=== PATIENT | male | born 1990 | race American Indian/Alaskan Native ===

== ENCOUNTER 2017-11-04 18:15 | Emergency (ER) | payer BC, OTHER ==
[2017-11-04] MEDS ORDERED: HYDROmorphone 1 MG/ML Syringe IVPUSH ONE (18:40)
[2017-11-04] MEDS ORDERED: Sodium Chloride 0.9% 10 ML Syringe FLUSH PRN (18:40)
[2017-11-04] MEDS ORDERED: Ondansetron 4 MG/2 ML SDV IVPUSH ONE (18:40)
[2017-11-04] MEDS ORDERED: Sodium Chloride 0.9% 1,000 ML IV ONE (18:41)
--- NOTE | 2017-11-04 18:46 | EDM.PDOC ---
ED HPI GENERAL MEDICAL PROBLEM - General Chief Complaint: Trauma Stated Complaint: FELL OFF LADDER Time Seen by Provider: 11/04/17 18:23 Source of Information: Reports: Patient History Limitations: Reports: No Limitations - History of Present Illness INITIAL COMMENTS - FREE TEXT/NARRATIVE: 27-year-old male presents for evaluation and treatment of injuries sustained after falling off a ladder. estimates he was 6 feet off the ground. Sounds as if he was putting up siding when the wind caught him causing him to fall off the ladder. Unclear exactly how he fell, believed to have landed on his buttocks. He is primarily complaining of pain to the low back and tailbone. He is also complaining of a headache. Rates the headache as had a 10 out of 10. Rates his low back pain a 10 out of 10. This injury occurred about an hour prior to arrival in the ER. His significant other is with him and states that it took him a long time to get up off of the ground. He felt nauseous and lightheaded earlier but this has improved. He is reporting some blurry vision and vision changes. Unsure if he lost consciousness but feels this is likely. Denies any neck pain, chest pain, abdominal pain, pain in the extremities, difficulty walking or numbness or tingling in the extremities. Trauma alert minor called upon arrival to the ED. C-collar placed upon arrival to the ED. Onset: Today Location: Reports: Head, Back Lower Headache Pain Score (Numeric/FACES): 10 - Related Data Allergies Allergy/AdvReac Type Severity Reaction Status Date / Time doxycycline Allergy Hives Verified 11/04/17 18:35 Home Meds: Home Meds Acetaminophen/HYDROcodone [[place] 325-5 MG] 1 tab PO Q6H PRN #10 tablet 11/04/17 [Rx] Orphenadrine [Norflex] 100 mg PO BID PRN #20 tab 11/04/17 [Rx] Review of Systems - Review of Systems Review Of Systems: See Below Eyes: Reports: Blurred Vision, Vision Change Ears: Reports: Dizziness Nose: Denies: Epistaxis Mouth/Throat: Denies: Loose Teeth Respiratory: Denies: Shortness of Breath Cardiovascular: Denies: Chest Pain GI/Abdominal: Reports: Nausea. Denies: Abdominal Pain, Vomiting Musculoskeletal: Reports: Back Pain (low back). Denies: Neck Pain, Arm Pain, Leg Pain Neurological: Reports: Dizziness, Headache, Syncope. Denies: Numbness, Tingling , Difficulty Walking ED EXAM, GENERAL - Physical Exam Exam: See Below Exam Limited By: No Limitations General Appearance: Alert, WD/WN, No Apparent Distress Eye Exam: Bilateral Eye: Normal Inspection, PERRL Ears: Normal External Exam, Normal Canal, Hearing Grossly Normal, Normal TMs Nose: Normal Inspection, No Blood Throat/Mouth: Normal Inspection, Normal Lips, Normal Teeth, Normal Oropharynx, Normal Voice, No Airway Compromise Head: Atraumatic, Normocephalic Neck: Normal Inspection, Supple, Non-Tender, Full Range of Motion, Other (c collar applied upon arrival to the ED) Respiratory/Chest: No Respiratory Distress, Lungs Clear, Normal Breath Sounds, Chest Non-Tender Cardiovascular: Normal Peripheral Pulses, Regular Rate, Rhythm, No Murmur GI/Abdominal: Soft, Non-Tender Back Exam: Normal Inspection, Other (sacrum). No: Vertebral Tenderness Extremities: Normal Inspection Neurological: Alert, Oriented, Normal Cognition Psychiatric: Normal Affect, Normal Mood Skin Exam: Warm, Dry, Normal Color Course - Vital Signs Last Recorded V/S: Last Vital Signs Temp 98.2 F 11/04/17 20:30 Pulse 69 11/04/17 20:30 Resp 15 11/04/17 20:30 BP 104/52 L 11/04/17 20:30 Pulse Ox 93 L 11/04/17 20:30 - Orders/Labs/Meds Orders: Active Orders 24 hr Category Date Time Status Cardiac Monitoring [RC] . DIRECTED Care 11/04/17 18:40 Active Peripheral IV Care [RC] . DIRECTED Care 11/04/17 18:40 Active Cervical Spine wo Cont [CT] Stat Exams 11/04/17 18:40 Taken Chest Abdomen Pelvis w Cont [CT] Stat Exams 11/04/17 18:40 Taken Head wo Cont [CT] Stat Exams 11/04/17 18:40 Taken Lumbar Spine wo Cont [CT] Stat Exams 11/04/17 18:40 Taken DRUG SCREEN, URINE [URCHEM] Stat Lab 11/04/17 18:40 Ordered UA W/MICROSCOPIC [URIN] Stat Lab 11/04/17 18:39 Ordered Peripheral IV Insertion Adult [OM.PC] Routine Oth 11/04/17 18:40 Ordered Labs: Laboratory Tests 11/04/17 11/04/17 Range/Units 18:42 18:42 WBC 16.65 H (4.23-9.07) K/mm3 RBC 5.63 (4.63-6.08) M/mm3 Hgb 16.8 (13.7-17.5) gm/L Hct 48.8 (40.1-51.0) % MCV 86.7 (79.0-92.2) fl MCH 29.8 (25.7-32.2) pg MCHC 34.4 (32.2-35.5) g/dl RDW Std Deviation 41.0 (35.1-43.9) fL Plt Count 261 (163-337) K/mm3 MPV 9.5 (9.4-12.3) fl Neut % (Auto) 85.9 H (34.0-67.9) % Lymph % (Auto) 7.6 L (21.8-53.1) % [place] % (Auto) 4.9 L (5.3-12.2) % Eos % (Auto) 1.2 (0.8-7.0) Baso % (Auto) 0.1 (0.1-1.2) % Neut # (Auto) 14.30 H (1.78-5.38) K/mm3 Lymph # (Auto) 1.27 L (1.32-3.57) K/mm3 [place] # (Auto) 0.82 (0.30-0.82) K/mm3 Eos # (Auto) 0.20 (0.04-0.54) K/mm3 Baso # (Auto) 0.01 (0.01-0.08) K/mm3 Manual Slide Review Abnormal smear Sodium 142 (136-145) mEq/L Potassium 4.2 (3.5-5.1) mEq/L Chloride 105 (98-107) mEq/L Carbon Dioxide 27 (21-32) mEq/L Anion Gap 14.2 (5-15) BUN 16 (7-18) mg/dL Creatinine 1.2 (0.7-1.3) mg/dL Est Cr Clr Drug Dosing 100.59 mL/min Estimated GFR (MDRD) > 60 (>60) mL/min BUN/Creatinine Ratio 13.3 L (14-18) Glucose 123 H (74-106) mg/dL Calcium 9.2 (8.5-10.1) mg/dL Total Bilirubin 1.2 H (0.2-1.0) mg/dL AST 20 (15-37) U/L ALT 29 (16-63) U/L Alkaline Phosphatase 126 H (46-116) U/L Total Protein 7.8 (6.4-8.2) g/dl Albumin 4.3 (3.4-5.0) g/dl Globulin 3.5 gm/dL Albumin/Globulin Ratio 1.2 (1-2) Lipase 71 L (73-393) U/L Ethyl Alcohol 0.00 (0.00) gm% Meds: Medications Discontinued Medications Generic Name Dose Route Start Last Admin Trade Name Freq PRN Reason Stop Dose Admin Hydromorphone HCl 1 mg 11/04/17 18:40 11/04/17 19:03 Dilaudid IVPUSH 11/04/17 18:41 1 mg ONETIME ONE Administration Sodium Chloride 1,000 mls @ 999 mls/hr 11/04/17 18:41 11/04/17 19:02 Normal Saline IV 11/04/17 19:41 999 mls/hr ONETIME ONE Administration Iopamidol 125 ml 11/04/17 19:13 11/04/17 19:27 Isovue-300 (61%) IVPUSH 11/04/17 19:14 125 ml ONETIME ONE Administration Ondansetron HCl 4 mg 11/04/17 18:40 11/04/17 19:03 Zofran IVPUSH 11/04/17 18:41 4 mg ONETIME ONE Administration Sodium Chloride 10 ml 11/04/17 18:40 11/04/17 19:03 Saline Flush FLUSH 10 ml ASDIRECTED PRN Administration Keep Vein Open Sodium Chloride 10 ml 11/04/17 19:13 11/04/17 19:27 Saline Flush FLUSH 11/04/17 19:14 10 ml ONETIME ONE Administration - Radiology Interpretation Free Text/Narrative:: CT of the head without IV contrast impression per vrad: no acute intracranial hemorrhage or mass effect. CT of the cervical spine without contrast impression per vrad: no acute fracture or traumatic subluxation. CT of lumbar spine without contrast impression per vrad: normal lumbar spine CT. CT of the chest with IV contrast impression per vrad: normal chest. CT of the abdomen and pelvis with IV contrast impression per vrad: no acute findings. - Re-Assessments/Exams Free Text/Narrative Re-Assessment/Exam: 11/04/17 20:04 As this Was a trauma alert minor, the case was discussed with Dr. Guillen, ER physician. He has seen and evaluated the patient. Evaluated around 18:45. Agrees with workup. I have reviewed the labs and imaging with the patient. Reports good pain relief with the IV Dilaudid. C-collar removed. Will discharge home at this time. Discharge instructions as documented. Departure - Departure Time of Disposition: 20:15 Disposition: Home, Self-Care 01 Condition: Fair Clinical Impression: Fall, Back pain - Discharge Information *PRESCRIPTION DRUG MONITORING PROGRAM REVIEWED*: No *COPY OF PRESCRIPTION DRUG MONITORING REPORT IN PATIENT MANUEL: No Prescriptions: Acetaminophen/HYDROcodone [[place] 325-5 MG] 1 tab PO Q6H PRN #10 tablet PRN Reason: Pain Orphenadrine [Norflex] 100 mg PO BID PRN #20 tab PRN Reason: Muscle Spasm Instructions: Back Pain, Adult Referrals: PCP,None [Primary Care Provider] - Ximena Layne PA-C [[employer]] - Forms: ED Department Discharge Additional Instructions: You were given medication in the ER that can affect your ability to drive and operate machinery. Do not drive or operative machinery within 10 hours of taking prescription narcotic pain medication. Recommend [id number] Tylenol or Motrin as needed for pain. Do not take more 4 g of Tylenol from all sources in 1 day. Do not take more than 3200 mg of ibuprofen in 1 day. For pain not relieved by tylenol or motrin may take norco 1 tab PO every 4-6 hours. Elmira can be habit forming, take as few as needed to control your pain. Do not drive or operate machinery within 10 hours of taking norco. Recommend using ice or heat for additional pain relief. You may also try topical products such as icyhot or BenGay. Recommend follow-up in the clinic within 2 weeks for recheck of your symptoms. Recommend Nelida Layne or Dr. Mccullough over at the [facility]. Call [phone] to schedule with one of these providers. May take Norflex 1 tab twice a day as needed for muscle pain and spasms. this Medication and make you drowsy. Do not drive or operate machinery until you know how this medication will affect you. Please return to the ER if your symptoms change or worsen. r - My Orders Last 24 Hours: My Active Orders 11/04/17 18:39 UA W/MICROSCOPIC [URIN] Stat 11/04/17 18:40 Cardiac Monitoring [RC] . DIRECTED Peripheral IV Care [RC] . DIRECTED Cervical Spine wo Cont [CT] Stat Chest Abdomen Pelvis w Cont [CT] Stat Head wo Cont [CT] Stat Lumbar Spine wo Cont [CT] Stat DRUG SCREEN, URINE [URCHEM] Stat Peripheral IV Insertion Adult [OM.PC] Routine - Assessment/Plan Last 24 Hours: My Active Orders 11/04/17 18:39 UA W/MICROSCOPIC [URIN] Stat 11/04/17 18:40 Cardiac Monitoring [RC] . DIRECTED Peripheral IV Care [RC] . DIRECTED Cervical Spine wo Cont [CT] Stat Chest Abdomen Pelvis w Cont [CT] Stat Head wo Cont [CT] Stat Lumbar Spine wo Cont [CT] Stat DRUG SCREEN, URINE [URCHEM] Stat Peripheral IV Insertion Adult [OM.PC] Routine
[2017-11-04] MEDS ORDERED: Sodium Chloride 0.9% 10 ML Syringe FLUSH ONE (19:13)
[2017-11-04] MEDS ORDERED: Iopamidol 612 MG/ML 150 ML Bottle IVPUSH ONE (19:13)
--- NOTE | 2017-11-05 10:10 | CT ---
CT cervical spine Technique: Multiple axial sections were obtained from above C1 inferiorly to the bottom of T1. Reconstructed sagittal and coronal images were reviewed. Comparison: No prior cervical spine imaging. Findings: Vertebral body heights and disc spaces are maintained. Vertebral bodies and posterior arches are intact. No fracture is identified. No abnormal subluxation is seen. Impression: 1. No abnormality is identified on CT study of the cervical spine. Diagnostic code #1 I agree with preliminary report from [facility], finalized at 11/04/17, 8:55 PM Central Time
--- NOTE | 2017-11-05 10:10 | CT ---
CT chest Technique: Multiple axial sections through the chest were obtained. Intravenous contrast was utilized. Comparison: No prior chest imaging is available. Findings: Mediastinum and hilar regions appear within normal limits. No pericardial thickening is seen. Lungs are clear. No parenchymal contusion is seen. No pleural effusions or pneumothorax are seen. Bone window settings were reviewed and no acute osseous abnormality is appreciated. Impression: 1. No abnormality is identified on CT study of the chest. Diagnostic code #1 I agree with preliminary report from [facility], finalized at 11/04/17, 8:[address] abdomen and pelvis Technique: Multiple axial sections were obtained from above the dome of the diaphragm inferiorly through the pubic symphysis. Intravenous contrast was utilized. No oral contrast has been given. Delayed images were obtained through the bladder. Comparison: No prior abdominal imaging. Findings: Liver shows no focal parenchymal abnormality. Spleen appears within normal limits. Adrenal glands show no nodule. Gallbladder contains no calcified gallstones. Pancreas is within normal limits. Kidneys show symmetric contrast enhancement without hydronephrosis or mass. Aorta shows no aneurysmal dilatation. No retroperitoneal adenopathy or mesenteric abnormalities are seen. No pelvic mass or adenopathy is seen. No free fluid or inflammatory change is seen. Appendix is visualized and appears normal in size. Delayed images show contrast within the distal ureters and within the bladder. Bone window settings were reviewed and show no acute osseous abnormality. Impression: 1. Nothing acute is seen on CT study of the abdomen and pelvis. Diagnostic code #1 I agree with preliminary report from [facility], finalized at 11/04/17, 8:51 PM Central Time
--- NOTE | 2017-11-05 10:10 | CT ---
CT lumbar spine Technique: Multiple axial sections were obtained from the mid T12 level inferiorly through the L5-S1 disc. Reconstructed sagittal and coronal images were reviewed. Comparison: No prior lumbar spine imaging is available. Findings: Vertebral body heights and disc spaces are maintained. Very slight diffuse posterior disc bulge is noted at L4-L5. Other discs are maintained. No disc herniation is seen. No fracture is identified. No abnormal subluxation is seen. Impression: 1. Minimal diffuse posterior disc bulge at L4-L5. CT study of the lumbar spine is otherwise unremarkable. Diagnostic code #2 I agree with preliminary report from [facility], finalized at 11/04/17, 8:52 PM Central Time
--- NOTE | 2017-11-05 10:10 | CT ---
Head CT Technique: Multiple axial sections through the brain were obtained. Intravenous contrast was not utilized. Comparison: No prior intracranial imaging. Findings: Ventricles along with basal cisterns and sulci over the convexities are within normal limits for the patient's age. No abnormal parenchymal densities are seen. No evidence of intracranial hemorrhage. No midline shift or mass effect is seen. Bone window settings were reviewed which show paranasal sinuses to appear clear. No acute calvarial abnormality is seen. Impression: 1. No abnormality is identified on noncontrast head CT study. Diagnostic code #1 I agree with preliminary report from [facility], finalized at 11/04/17, 8:59 PM Central Time
== END 2017-11-04 20:35 | disposition home or self-care (01) ==
LOC: JD.ED 18:15
DX: M54.5 Low back pain (principal); W11.XXXA Fall on and from ladder, initial encounter; Z88.1 Allergy status to other antibiotic agents
CPT/HCPCS: 36415; 70450; 71260; 72125; 72131; 74177; 80053; 83690; 85025; 96361; 96374; 96375; 99284; G0480; J2405; J7040; J7050; Q9967; J1170

== ENCOUNTER 2023-04-26 16:00 | Emergency (ER) | payer OTHER ==
[2023-04-26 16:46] LABS: BASOPHILS PERCENT AUTO 0.2 % (0.0-1.0); EOSINOPHILS ABSOLUTE AUTO 0.4 K/mm3 (0.0-0.4); EOSINOPHILS PERCENT AUTO 2.8 % (0.0-6.0); HEMATOCRIT 45.9 % (42.0-52.0); IMMATURE GRAN ABSOLUTE AUTO 0.05 K/mm3 (0.00-0.05); IMMATURE GRAN PERCENT AUTO 0.4 % (0.0-0.4); LYMPHOCYTES ABSOLUTE AUTO 2.2 K/mm3 (1.0-4.8); LYMPHOCYTES PERCENT AUTO 15.4 % (24.0-44.0); MEAN CORPUSCULAR HEMOGLOBIN 30.5 pg (28.0-32.0); MEAN CORPUSCULAR HGB CONC 34.9 g/dl (32.0-36.0); MEAN CORPUSCULAR VOLUME 87.6 fl (83.0-99.0); MEAN PLATELET VOLUME 9.1 fl (9.4-12.4); MONOCYTES ABSOLUTE AUTO 0.9 K/mm3 (0.0-0.8); NEUTROPHILS ABSOLUTE AUTO 10.6 K/mm3 (1.8-7.7); NEUTROPHILS PERCENT AUTO 75.2 % (41.0-71.0); PLATELET COUNT,PLT 256 K/mm3 (150-400); RED BLOOD CELL COUNT 5.24 M/mm3 (4.52-5.90); WHITE BLOOD CELL COUNT,WBC 14.15 K/mm3 (3.9-11.3)
[2023-04-26 17:14] LABS: A/G RATIO 1.2 (1-2); ALANINE AMINOTRANSFERASE,ALT 36 U/L (16-63); ALBUMIN 4.2 g/dl (3.4-5.0); ALKALINE PHOSPHATASE 135 U/L (46-116); ANION GAP 12.4 (5-15); ASPARTATE AMNIOTRANSFERASE,AST 16 U/L (15-37); BILIRUBIN TOTAL 1.2 mg/dL (0.2-1.0); BLOOD UREA NITROGEN,BUN 13 mg/dL (7-18); CARBON DIOXIDE,CO2 30 mEq/L (21-32); CHLORIDE,CL 104 mEq/L (98-107); EST CRCL DRUG DOSING (CG) 115.32 mL/min; ESTIMATED GFR 102 mL/min (>60); GLUCOSE RANDOM 113 mg/dL (70-99); POTASSIUM,K 3.4 mEq/L (3.5-5.1); PROTEIN TOTAL,TP 7.7 g/dl (6.4-8.2); SODIUM,NA 143 mEq/L (136-145)
[2023-04-26 17:21] LABS: CORONAVIRUS COVID-19 NAA NEGATIVE (NEGATIVE); INFLUENZA A NAA NEGATIVE (NEGATIVE); RESPIRATORY SYNCYTIAL VIR NAA NEGATIVE (NEGATIVE)
[2023-04-26 17:22] LABS: TROPONIN I HIGH SENSITIVITY < 4 pg/mL (<=76)
== END 2023-04-26 18:20 | disposition home or self-care (01) ==
LOC: JD.ED 16:00
DX: J40 Bronchitis, not specified as acute or chronic (principal); J01.90 Acute sinusitis, unspecified; F17.210 Nicotine dependence, cigarettes, uncomplicated; Z88.1 Allergy status to other antibiotic agents
CPT/HCPCS: 0241U; 36415; 71046; 71046-26; 80053; 84484; 85025; 87651-QW; 93005; 99283